=== PATIENT | male | born 1975 | race Two or more races ===

== ENCOUNTER 2023-09-17 12:35 | Emergency (ER) | payer OTHER ==
[~2023-09-17] VITALS: Ht 185.4 cm; Wt 113.4 kg
[2023-09-17] MEDS ORDERED: LIDO30AD10 TP (14:34)
[2023-09-17] MEDS ORDERED: CYCL5TAB PO (14:34)
[2023-09-17 14:52] VITALS: BP 122/81; TEMP 98.3; O2SAT 100
== END 2023-09-17 14:52 | disposition home or self-care (01) ==
LOC: ER 13:07
DX: S83.92XA Sprain of unspecified site of left knee, initial encounter (principal); Z87.39 Personal history of other diseases of the musculoskeletal system and connective tissue; W16.712A Jumping or diving from boat striking water surface causing other injury, initial encounter; Y93.89 Activity, other specified; Y92.89 Other specified places as the place of occurrence of the external cause; Y99.8 Other external cause status